=== PATIENT | female | born 1960 | race Caucasian/White ===

== ENCOUNTER → 2020-07-04 | Outpatient (CLI) | payer SELFPAY ==
[2020-07-04 23:19] LABS: HCT 37.5 % (37.2-46.3); HGB 12.2 g/dL (12.0-15.0); MCH 33.5 pg (27.0-32.0); MCHC 32.5 g/dL (32.0-37.0); Mean Platelet Volume 11.3 fL (9.5-12.2); Platelet Count 166 X 10*3/uL (140-440); RBC 3.64 X 10*6/uL (4.10-5.20); RDW 14.2 % (11.5-14.5)
[2020-07-05 02:38] LABS: Chol/HDL Ratio 1.92; LDL Cholesterol,Calculated 85.6 mg/dL (0.0-131.0); VLDL Calculation 17.4 mg/dL (5.00-40.00)
[2020-07-05 04:32] LABS: Hepatitis A Antibody IgM Non-Reactive (Non-Reactive); Hepatitis B Core IgM Non-Reactive (Non-Reactive); Hepatitis B Surface Antigen Non-Reactive (Non-Reactive); Hepatitis C IgG Antibody Reactive (Non-Reactive)
== END | disposition home or self-care (01) ==
LOC: LABWHC1 14:35
PROVIDERS: ATTEND Internal Medicine
DX: K64.2 Third degree hemorrhoids (principal); B18.2 Chronic viral hepatitis C; E66.9 Obesity, unspecified
CPT/HCPCS: 36415; 80061; 80074; 84443; 85027; 87522

== ENCOUNTER → 2020-08-04 | Outpatient (CLI) | payer MEDICAID, BC | END | disposition home or self-care (01) | LOC: LABPAT 14:14 | PROVIDERS: ATTEND Surgery | DX: Z01.812 Encounter for preprocedural laboratory examination (principal); Z20.822 Contact with and (suspected) exposure to COVID-19 | CPT/HCPCS: U0003; U0005 ==

== ENCOUNTER → 2020-08-11 | Day surgery (SDC) | payer MEDICAID, BC ==
[2020-08-07 12:52] VITALS: BMI 37.8
[~2020-08-11] MED LIST: BUPIVACAINE (PF) 0.25% 30 ML VIAL SQ ONE; HYDROmorphone 0.5 MG/0.5 ML SYRINGE IVP ONE; KETOROLAC 15 MG/ML 1 ML VIAL IVP ONE; LACTATED RINGERS 1,000 ML IV SCH; LIDOCAINE 1%-EPI 1:100,000 20 ML VIAL SQ ONE; Pre Op ABX Message 1 EACH MISC MISCELLANE ONE
--- NOTE | 2020-08-11 14:10 | P.OP ---
Date of Procedure: 08/11/20 Preoperative Diagnosis: Colon cancer screening, rectal prolapse Postoperative Diagnosis: Colon cancer screening, rectal prolapse with mucosal ulceration, diverticulosis Procedure(s) Performed: Colonoscopy, rectal exam under anesthesia was stapled hemorrhoidopexy Anesthesia: ROOSEVELT Surgeon: Alaina Mccollum Estimated Blood Loss (ml): 10 Pathology: other Condition: stable Disposition: PACU Indications for Procedure: Patient presented for rectal prolapse. She also had not had a colonoscopy and some years. Description of Procedure: Patient's taken to the operative suite where she was placed in a left lateral decubitus position. A colonoscope was passed per rectum to the cecum. There was a good prep. There is diverticulosis noted in the sigmoid colon. There is a superficial mucosal ulceration in the rectum consistent with prior prolapse. The colon is otherwise without evidence of polyp, mass lesion, stricture or other mucosal abnormality. She's then placed onto the operative table in stirrups. She is prepped and draped in the usual sterile manner. Digital rectal exam is carried out. Anoscope was inserted and all areas were examined. This is consistent with some significant rectal mucosal prolapse. A pursestring suture of 2-0 Prolene was then placed about 4-5 cm proximal to the dentate line. The stapler was inserted and the pursestring was tied down. The limbs of the suture were brought through the appropriate openings. The stapler was closed until the indicator was in the mid green portion. A vaginal exam was carried out and there was no evidence of incorporated vaginal mucosa. It was held 1 minute, fired and held 1 minute. During this the patient began to become light with the anesthetic. When the stapler was removed there was an incomplete donut. Therefore the procedure was repeated. At that point there was a good complete donuts however there is still some redundant tissue anteriorly. One additional firing was performed and there was good reduction of the prolapse. No significant bleeding was noted. Perianal block was carried out she was taken recovery room in satisfactory condition. According to or personnel, ARE correct. Plan - Discharge Summary Discharge Rx Participant: Yes New Discharge Prescriptions: New HYDROcodone/APAP 5-325MG [[place] 5-325] 1 - 2 tab PO Q4H PRN #20 tab PRN Reason: Pain No Action Ibuprofen 200 - 400 mg PO Q6H PRN PRN Reason: Pain Omeprazole [PriLOSEC] 20 mg PO DAILY PRN PRN Reason: Heartburn Discharge Medication List Ibuprofen 200 - 400 mg PO Q6H PRN 08/07/20 [History] Omeprazole [PriLOSEC] 20 mg PO DAILY PRN 08/07/20 [History] HYDROcodone/APAP 5-325MG [[place] 5-325] 1 - 2 tab PO Q4H PRN #20 tab 08/11/20 [Rx] Follow up Appointment(s)/Referral(s): Alaina Mccollum DO [Doctor of Osteopathic Medicine] - 2 Weeks Activity/Diet/Wound Care/Special Instructions: Take pain medication as needed. You could also take Tylenol or Motrin. [place] warm tub of water 2 or 3 times a day as needed for discomfort. Expect a little bit of bleeding. Begin taking a fiber supplement and/or stool softener daily. The goal is 1-2 soft bowel movements a day. Due to the bowel prep, bowel movement would not be expected until Tuesday. Call if questions or concerns Discharge Disposition: HOME SELF-CARE
[2020-08-11 14:23] VITALS: TEMP 97.5
[2020-08-11 14:33] VITALS: RESP 16
[2020-08-11 15:28] VITALS: BP 151/90; PULSE 65
== END | disposition home or self-care (01) ==
LOC: ORWHC2ENDO 11:07
PROVIDERS: ATTEND Surgery
DX: K62.3 Rectal prolapse (principal); K62.89 Other specified diseases of anus and rectum; K64.5 Perianal venous thrombosis; K57.30 Diverticulosis of large intestine without perforation or abscess without bleeding; K62.6 Ulcer of anus and rectum; K64.8 Other hemorrhoids; M19.90 Unspecified osteoarthritis, unspecified site; F32.9 Major depressive disorder, single episode, unspecified; G43.909 Migraine, unspecified, not intractable, without status migrainosus; K08.89 Other specified disorders of teeth and supporting structures; F17.210 Nicotine dependence, cigarettes, uncomplicated; Z98.890 Other specified postprocedural states; Z80.0 Family history of malignant neoplasm of digestive organs; Z79.1 Long term (current) use of non-steroidal anti-inflammatories (NSAID); Z79.899 Other long term (current) drug therapy; Z86.19 Personal history of other infectious and parasitic diseases; Z96.659 Presence of unspecified artificial knee joint; Z96.653 Presence of artificial knee joint, bilateral; Z90.89 Acquired absence of other organs; Z98.1 Arthrodesis status
CPT/HCPCS: 88305; 45378; 46947; J1885; J1170

== ENCOUNTER → 2020-09-26 | Outpatient (CLI) | payer MEDICAID, BC ==
--- NOTE | 2020-09-26 09:05 | US ---
EXAMINATION TYPE: US abdomen complete DATE OF EXAM: 09/26/2020 COMPARISON: NONE CLINICAL HISTORY: Chronic viral hepatitis C B18.2. hepatitis EXAM MEASUREMENTS: Liver Length: 15.0 cm Gallbladder Wall: 0.3 cm CBD: 0.3 cm Spleen: 12.3 cm Right Kidney: 9.9 x 3.6 x 4.7 cm Left Kidney: 11.5 x 5.1 x 5.2 cm Technical limitations due to large amount of overlying bowel content Pancreas: Obscured by overlying bowel gas Liver: appears wnl Gallbladder: no evidence of stones Evidence for sonographic Seth's sign: no CBD: appears wnl Spleen: wnl Right Kidney: no evidence of hydronephrosis Left Kidney: no evidence of hydronephrosis Upper IVC: wnl Abd Aorta: Atherosclerotic aorta. No evidence of abdominal aortic aneurysm visualized portions. IMPRESSION: 1. The study is limited by overlying bowel gas. The pancreas is obscured by overlying bowel gas. 2. Atherosclerotic aorta. No evidence of visualized aneurysm.
== END | disposition home or self-care (01) ==
LOC: RADUSWWP 06:56
PROVIDERS: ATTEND Internal Medicine
DX: I70.0 Atherosclerosis of aorta (principal); B18.2 Chronic viral hepatitis C
CPT/HCPCS: 76700

== ENCOUNTER → 2021-01-26 | Outpatient (CLI) | payer MEDICAID, BC, OTHER | END | disposition home or self-care (01) | LOC: LABWHC1 09:24 | PROVIDERS: ATTEND Emergency Medicine | DX: Z03.818 Encounter for observation for suspected exposure to other biological agents ruled out (principal); Z20.822 Contact with and (suspected) exposure to COVID-19 | CPT/HCPCS: 87635 ==

== ENCOUNTER → 2021-01-27 | Outpatient (CLI) | payer MEDICAID, BC, OTHER | END | disposition home or self-care (01) | LOC: LABT 11:46 | PROVIDERS: ATTEND Emergency Medicine | DX: Z20.822 Contact with and (suspected) exposure to COVID-19 (principal) | CPT/HCPCS: 87635 ==

== ENCOUNTER 2022-04-06 12:29 | Day surgery (SDC) | payer BC, MEDICAID, OTHER ==
[2022-03-31 10:27] VITALS: BMI 41.5
[~2022-04-06 12:29] MED LIST changes: -BUPIVACAINE (PF) 0.25% 30 ML VIAL SQ ONE; -HYDROmorphone 0.5 MG/0.5 ML SYRINGE IVP ONE; -KETOROLAC 15 MG/ML 1 ML VIAL IVP ONE; -LIDOCAINE 1%-EPI 1:100,000 20 ML VIAL SQ ONE; -Pre Op ABX Message 1 EACH MISC MISCELLANE ONE
[2022-04-06] MEDS ORDERED: LACTATED RINGERS 1,000 ML IV ONE ×2 (13:01)
[2022-04-06] MEDS ORDERED: PROPOFOL 10 MG/ML 20 ML VIAL IV ONE (13:02)
[2022-04-06 13:03] VITALS: TEMP 98.6
--- NOTE | 2022-04-06 13:03 | P.GSHP ---
History of Present Illness H&P Date: 04/06/22 The patient had been seen in the office for rectal bleeding which she thought was hemorrhoidal. No hemorrhoids were seen on anoscopy but the rectal mucosa appeared inflamed. A mucosal biopsy showed proctitis and she was started on a rectal steroid with no improvement so colonoscopy with further biopsies was recommended - Review of Systems All systems: negative Past Medical History Past Medical History: GERD/Reflux Additional Past Medical History / Comment(s): ULCLERATIVE COLOITIS History of Any Multi-Drug Resistant Organisms: MRSA Date of last positivie culture/infection: 2008 MDRO Source:: RT KNEE Past Surgical History: Section, Joint Replacement, Tonsillectomy, Tubal Ligation Additional Past Surgical History / Comment(s): BILAT TKA. COLONOSCOPY. NECK SX. CYST REMOVED FROM SINUSES. HEMORRHOIDECTOMY. D & C Past Anesthesia/Blood Transfusion Reactions: No Reported Reaction Smoking Status: Current every day smoker - Past Family History Mother Family Medical History: No Reported History Medications and Allergies Home Medications Medication Instructions Recorded Confirmed Type Ibuprofen 200 - 400 mg PO Q6H PRN 08/07/20 03/31/22 History Omeprazole [PriLOSEC] 20 mg PO DAILY PRN 08/07/20 03/31/22 History sulfADIAZINE [Sulfadiazine] 500 mg PO BID 03/31/22 03/31/22 History Allergies Allergy/AdvReac Type Severity Reaction Status Date / Time No Known Allergies Allergy Verified 04/06/22 12:52 Surgical - Exam Osteopathic Statement: *. No significant issues noted on an osteopathic structural exam other than those noted in the History and Physical/Consult. - General well developed, well nourished, no distress - Eyes normal ocular movement - Neck trachea midline - Respiratory normal expansion, clear to auscultation - Cardiovascular Rhythm: regular - Abdomen Abdomen: soft, non tender, bowel sounds Assessment and Plan (1) Colon cancer screening Current Visit: Yes Status: Acute Code(s): Z12.11 - ENCOUNTER FOR SCREENING FOR MALIGNANT NEOPLASM OF COLON SNOMED Code(s): 240822797 (2) Diarrhea Current Visit: Yes Status: Acute Code(s): R19.7 - DIARRHEA, UNSPECIFIED SNOMED Code(s): 88158587 (3) History of proctitis Current Visit: Yes Status: Acute Code(s): Z87.19 - PERSONAL HISTORY OF OTHER DISEASES OF THE DIGESTIVE SYSTEM SNOMED Code(s): 281400137 Plan: Colonoscopy. The procedure, risks and complications were discussed. Questions were encouraged and answered.
[2022-04-06 13:54] VITALS: BP 128/78; PULSE 82; RESP 16
--- NOTE | 2022-04-16 16:49 | P.PCN ---
Date of Procedure: 04/06/22 Preoperative Diagnosis: Diarrhea, history proctitis, colon cancer screening Postoperative Diagnosis: Same, mild proctitis Procedure(s) Performed: Colonoscopy with biopsy Anesthesia: MAC Surgeon: Alaina Mccollum Pathology: other Condition: stable Disposition: PACU Description of Procedure: The patient was treated for proctitis with no improvement of symptons. She is taken to the endoscopy suite where a colonoscope is passed per rectum to the cecum. The prep was good. Scattered diverticuli were seen. In the distal rectum there was some mucosal erythema. No mass lesion, ulcer, mass or other abnormality was seen. The ileum was not able to be cannulated, even with reposititioning. Random biopsies were obtained along with biopsies of the distal sigmoid and rectum. We will call with further recommendations Plan - Discharge Summary Discharge Rx Participant: Yes New Discharge Prescriptions: No Action Ibuprofen 200 - 400 mg PO Q6H PRN PRN Reason: Pain Omeprazole [PriLOSEC] 20 mg PO DAILY PRN PRN Reason: Heartburn sulfADIAZINE [Sulfadiazine] 500 mg PO BID Discharge Medication List Ibuprofen 200 - 400 mg PO Q6H PRN 08/07/20 [History] Omeprazole [PriLOSEC] 20 mg PO DAILY PRN 08/07/20 [History] sulfADIAZINE [Sulfadiazine] 500 mg PO BID 03/31/22 [History] Patient Instructions/Handouts: *Sur[facility] - (Anesthesia) Endoscopy Discharge Instructions Discharge Disposition: HOME SELF-CARE
== END 2022-04-06 14:02 | disposition home or self-care (01) ==
LOC: ORWHC2ENDO 12:29
PROVIDERS: ATTEND Surgery
DX: Z12.11 Encounter for screening for malignant neoplasm of colon (principal); K62.5 Hemorrhage of anus and rectum; F17.200 Nicotine dependence, unspecified, uncomplicated; K21.9 Gastro-esophageal reflux disease without esophagitis; Z96.653 Presence of artificial knee joint, bilateral
CPT/HCPCS: 88305; 45380; J2704

== ENCOUNTER → 2022-10-12 | Outpatient (CLI) | payer MEDICAID ==
[2022-10-12 22:14] LABS: C Reactive Protein <0.30 mg/dL
[2022-10-12 23:32] LABS: ALT 43 U/L; AST 39 U/L; Albumin 3.9 d/dL; Albumin/Globulin Ratio 1.62 Ratio; Alkaline Phosphatase 71 U/L; Blood Urea Nitrogen 12.9 mg/dL; Calcium 8.8 mg/dL; Carbon Dioxide 22.5 mmol/L; Chloride 104 mmol/L; Globulin 2.4 d/dL; Glucose 103 mg/dL; Potassium 3.3 mmol/L; Sodium 142 mmol/L; Total Bilirubin 0.5 mg/dL; Total Protein 6.3 d/dL
[2022-10-13 01:32] LABS: Basophils # (A) 0.04 X 10*3/uL; Eosinophils # (A) 0.13 X 10*3/uL; Eosinophils % (A) 3.2 %; HCT 42.6 %; HGB 13.8 d/dL; Lymphocytes # (A) 1.21 X 10*3/uL; MCH 33.3 pg; MCHC 32.4 d/dL; MCV 102.9 FL; Mean Platelet Volume 11.8 FL; Monocytes # (A) 0.31 X 10*3/uL; Monocytes % (A) 7.7 %; NRBC Per 100 WBC 0 X 10*3/uL; Neutrophils # (A) 2.34 X 10*3/uL; Neutrophils % (A) 57.9 %; Platelet Count 151 X 10*3/uL; RBC 4.14 X 10*6/uL; RDW 13.7 %; WBC 4.04 X 10*3/uL
[2022-10-13 04:08] LABS: Erythrocyte Sedimentation Rate 11 mm/Hr
== END | disposition home or self-care (01) ==
LOC: LABWHC1 13:24
PROVIDERS: ATTEND Nurse Practitioner Family
DX: K51.20 Ulcerative (chronic) proctitis without complications (principal)
CPT/HCPCS: 36415; 80053; 83993; 85025; 85652; 86140

== ENCOUNTER 2022-11-05 11:49 | Day surgery (SDC) | payer MEDICAID ==
[2022-11-03 13:21] VITALS: BMI 38.0
[2022-11-05] MEDS ORDERED: LACTATED RINGERS 1,000 ML IV SCH (12:22)
[2022-11-05 12:43] VITALS: RESP 16; TEMP 97
[2022-11-05] MEDS ORDERED: LIDOCAINE 2% INJ 20 MG/ML (2 ML VIAL) ONE (13:18)
[2022-11-05] MEDS ORDERED: PROPOFOL 10 MG/ML 20 ML VIAL IV ONE (13:18)
--- NOTE | 2022-11-05 13:30 | P.PCN ---
Date of Procedure: 11/05/22 Procedure(s) Performed: BRIEF HISTORY: Patient is a 62-year-old, pleasant, white female scheduled for an upper endoscopy as a part of surveillance of long-standing history of GERD and Ledezma's esophagus. Her last EGD was several years ago. She is currently on omeprazole 20 mg daily.. PROCEDURE PERFORMED: Esophagogastroduodenoscopy with biopsy. PREOPERATIVE DIAGNOSIS: GERD/Ledezma's esophagus. IV sedation per anesthesia. PROCEDURE: After informed consent was obtained, the patient was brought into the endoscopy unit. IV sedation was administered by Anesthesia under continuous monitoring. Initially the Olympus GIF-140 video endoscope was inserted into the mouth. Esophagus intubated without any difficulty. It was gradually advanced into the stomach and duodenum and carefully examined. The bulb and the second part of the duodenum appeared normal. The scope at this time was withdrawn to the stomach, adequately insufflated with air, and upon careful examination, mucosa of the antrum, had mild gastritis and biopsies were done from this area. Mucosa of the body, cardia and the fundus appeared normal. The scope was then withdrawn into the esophagus. The GE junction was located at 34 cm from the incisors. There was a 5 mm tongue of Ledezma's appearing mucosa just proximal to the GE junction which was biopsied. The rest of the esophagus appeared normal. There were no erosions or ulcerations seen and the patient tolerated the procedure well. IMPRESSION: 1. 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 2. Mild antral gastritis. RECOMMENDATIONS: The findings of this examination were discussed with the patient lesser family. She was advised to follow with the biopsy results. Continue with omeprazole 20 mg daily and follow antireflux measures. If the biopsy confirms the presence of Ledezma's esophagus he can have a repeat upper endoscopy 3 years.
[2022-11-05 14:00] VITALS: BP 128/82; PULSE 76
== END 2022-11-05 14:31 | disposition home or self-care (01) ==
LOC: ORWHC2ENDO 11:49
PROVIDERS: ATTEND Internal Medicine Gastroenterology
DX: K29.50 Unspecified chronic gastritis without bleeding (principal); K22.70 Barrett's esophagus without dysplasia; K22.89 Other specified disease of esophagus; K21.9 Gastro-esophageal reflux disease without esophagitis; K51.90 Ulcerative colitis, unspecified, without complications; I25.10 Atherosclerotic heart disease of native coronary artery without angina pectoris; F17.200 Nicotine dependence, unspecified, uncomplicated; M19.90 Unspecified osteoarthritis, unspecified site; Z79.1 Long term (current) use of non-steroidal anti-inflammatories (NSAID); Z79.899 Other long term (current) drug therapy
CPT/HCPCS: 43239; J2704; J2001; 88305

== ENCOUNTER 2022-12-18 12:17 | Emergency (ER) | payer MEDICAID ==
[2022-12-18 12:21] VITALS: RESP 20; TEMP 98
[2022-12-18] MEDS ORDERED: SODIUM CHLORIDE 0.9% 1,000 ML IV STA (12:23)
[2022-12-18] MEDS ORDERED: KETOROLAC 15 MG/ML 1 ML VIAL IVP STA (12:43)
--- NOTE | 2022-12-18 12:46 | ED ---
General Adult HPI - General Chief complaint: Upper Respiratory Infection Stated complaint: Headache, congestion Time Seen by Provider: 12/18/22 12:23 Source: patient Mode of arrival: ambulatory Limitations: no limitations, physical limitation - History of Present Illness Initial comments: 62 year old female presented to the ED with a chief complaint of URI symptoms. Patient states yesterday, started to experience rhinorrhea, congestion. Today, notes onset of headache and cough productive with yellow sputum. States that she took an at-home covert tests, which was positive. Denies shortness of breath. Denies fever. Denies chest pain. No other complaints at this time. - Related Data Home Medications Medication Instructions Recorded Confirmed Ibuprofen 200 - 400 mg PO Q6H PRN 08/07/20 11/05/22 Omeprazole [PriLOSEC] 20 mg PO DAILY PRN 08/07/20 11/05/22 sulfADIAZINE [Sulfadiazine] 500 mg PO BID 03/31/22 11/05/22 Allergies Allergy/AdvReac Type Severity Reaction Status Date / Time No Known Allergies Allergy Verified 12/18/22 12:21 Review of Systems ROS Statement: Those systems with pertinent positive or pertinent negative responses have been documented in the HPI. ROS Other: All systems not noted in ROS Statement are negative. 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 History of Any Multi-Drug Resistant Organisms: MRSA Date of last positivie culture/infection: 2008 MDRO Source:: RT KNEE Past Surgical History: Section, Joint Replacement, Tonsillectomy, Tubal Ligation Additional Past Surgical History / Comment(s): total right & left knees, colonoscopy.,. cervical surgery to replace discs with cadaver bone., cyst removed from sinuses, hemorrhoidectomy, d & c. Past Anesthesia/Blood Transfusion Reactions: No Reported Reaction Past Psychological History: No Psychological Hx Reported Smoking Status: Current every day smoker Past Alcohol Use History: Occasional Past Drug Use History: None Reported - Past Family History Mother Family Medical History: Unable to Obtain Additional Family Medical History / Comment(s): pt adopted General Exam Limitations: no limitations, physical limitation General appearance: alert, in no apparent distress Eye exam: Present: normal appearance Respiratory exam: Present: normal lung sounds bilaterally Cardiovascular Exam: Present: regular rate, normal rhythm GI/Abdominal exam: Present: soft Extremities exam: Present: normal inspection Neurological exam: Present: alert, oriented X3 Skin exam: Present: warm, dry Course Vital Signs 12/18/22 12:18 Temperature 98 F Pulse Rate 101 H Respiratory 20 Rate Blood Pressure 164/85 O2 Sat by Pulse 99 Oximetry Medical Decision Making - Medical Decision Making Was pt. sent in by a medical professional or institution (, MARIA ELENA, NEWSPAPER DISTRIBUTOR SUPERVISOR, urgent care, hospital, or group home...) When possible be specific @ -No Did you speak to anyone other than the patient for history (EMS, parent, family, police, friend...)? What history was obtained from this source @ -No Did you review nursing and triage notes (agree or disagree)? Why? @ -I reviewed and agree with nursing and triage notes Were old charts reviewed (outside hosp., previous admission, EMS record, old EKG, old radiological studies, urgent care reports/EKG's, group home records)? Report findings @ -No old charts were reviewed Differential Diagnosis (chest pain, altered mental status, abdominal pain women, abdominal pain men, vaginal bleeding, weakness, fever, dyspnea, syncope, headache, dizziness, GI bleed, back pain, seizure, CVA, palpatations, mental health, musculoskeletal)? @ -Differential Dyspnea: Coronary syndrome, arrhythmia, tamponade, asthma, COPD, pulmonary embolism, pneumonia, pneumothorax, pulmonary effusion, anaphylaxis, diabetic ketoacidosis, flailed chest, pulmonary contusion, diaphragmatic rupture, anemia, neuromuscular, this is not meant to be an all-inclusive list. EKG interpreted by me (3pts min.). @ -None X-rays interpreted by me (1pt min.). @ -X-ray show no evidence of pneumonia or other acute process. CT interpreted by me (1pt min.). @ -None done U/S interpreted by me (1pt. min.). @ -None done What testing was considered but not performed or refused? (CT, X-rays, U/S, labs)? Why? @ -None What meds were considered but not given or refused? Why? @ -None Did you discuss the management of the patient with other professionals (professionals i.e. , MARIA ELENA, NEWSPAPER DISTRIBUTOR SUPERVISOR, lab, RT, psych nurse, social sciences professor, drilling supervisor, teacher, desk officer, foster care case manager)? Give summary @ -No Was smoking cessation discussed for >3mins.? @ -No Was critical care preformed (if so, how long)? @ -No Were there social determinants of health that impacted care today? How? (Homelessness, low income, unemployed, alcoholism, drug addiction, transp ortation, low edu. Level, literacy, decrease access to med. care, [facility], rehab)? @ -No Was there de-escalation of care discussed even if they declined (Discuss DNR or withdrawal of care, Hospice)? DNR status @ -No What co-morbidities impacted this encounter? (DM, HTN, Smoking, COPD, CAD, Cancer, CVA, ARF, Chemo, Hep., AIDS, mental health diagnosis, sleep apnea, morbid obesity)? @ -None Was patient admitted / discharged? Hospital course, mention meds given and route, prescriptions, significant lab abnormalities, going to OR and other pertinent info. @ -Discharge. Influenza A/B, RSV,COVID testing negative. However, with positive home test will likely does have COVID. Is x-ray showed no evidence of pneumonia or other acute process. Discussed pros versus cons of antiviral treatment. At this time, patient deferred prescription. Advised supportive care. Discussed return precautions with patient who verbalizes agreement. Undiagnosed new problem with uncertain prognosis? @ -No Drug Therapy requiring intensive monitoring for toxicity (Heparin, Nitro, Insulin, Cardizem)? @ -No Were any procedures done? @ -No Diagnosis/symptom? @ -Viral URI Acute, or Chronic, or Acute on Chronic? @ -Acute Uncomplicated (without systemic symptoms) or Complicated (systemic symptoms)? @ -Uncomplicated Side effects of treatment? @ -No Exacerbation, Progression, or Severe Exacerbation? @ -No Poses a threat to life or bodily function? How? (Chest pain, [place], NH, pneumonia, PE, COPD, DKA, ARF, appy, cholecystitis, CVA, Diverticulitis, Homicidal, Morales icidal, threat to staff... and all critical care pts) @ -No - Lab Data Lab Results 12/18/22 Range/Units 12:23 Influenza Type A (PCR) Not Detected (Not Detectd) Influenza Type B (PCR) Not Detected (Not Detectd) RSV (PCR) Not Detected (Not Detectd) SARS-CoV-2 (PCR) Not Detected (Not Detectd) Disposition Clinical Impression: Viral URI Disposition: HOME SELF-CARE Condition: Good Instructions (If sedation given, give patient instructions): Upper Respiratory Infection (ED) Additional Instructions: Please return to the Emergency Department if symptoms worsen or any other concerns. Is patient prescribed a controlled substance at d/c from ED?: No Referrals: None,Stated [Primary Care Provider] - 1-2 days Time of Disposition: 14:08
--- NOTE | 2022-12-18 13:32 | XR ---
EXAMINATION TYPE: XR chest 2V DATE OF EXAM: 12/18/2022 COMPARISON: NONE HISTORY: Shortness of breath TECHNIQUE: Frontal and lateral views of the chest are obtained. FINDINGS: Scattered senescent parenchymal changes noted. Hyperinflation compatible with COPD. No evidence for infiltrate. No evidence for atelectasis. Heart size is stable. Mediastinal structures are stable and grossly unremarkable. No evidence for hilar prominence. Degenerative changes dorsal spine. IMPRESSION: 1. No evidence for acute pulmonary disease.
[2022-12-18 14:29] VITALS: BP 162/107; PULSE 82
== END 2022-12-18 14:32 | disposition home or self-care (01) ==
LOC: EC 12:17
DX: J06.9 Acute upper respiratory infection, unspecified (principal); K21.9 Gastro-esophageal reflux disease without esophagitis; F17.200 Nicotine dependence, unspecified, uncomplicated; Z20.822 Contact with and (suspected) exposure to COVID-19; Z79.899 Other long term (current) drug therapy
CPT/HCPCS: 87636; 71046; 99284; 96374; 96361; J1885

== ENCOUNTER 2024-01-21 03:40 | Emergency (ER) | payer MEDICAID, OTHER ==
[2024-01-21 03:47] VITALS: TEMP 98
[2024-01-21] MEDS: HYDROcodone/APAP 5-325MG 1 EACH TAB PO STA (05:00)
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
[2024-01-21 07:02] VITALS: BP 110/70; PULSE 84; RESP 16
== END 2024-01-21 06:57 | disposition home or self-care (01) ==
LOC: EC 03:40
CPT/HCPCS: 72070; 99283

== ENCOUNTER 2024-08-21 00:06 | Emergency (ER) | payer MEDICAID, OTHER ==
--- NOTE | 2024-08-21 00:29 | ED ---
GI Bleed HPI - General Chief complaint: GI Bleed Stated complaint: GI Bleed Time Seen by Provider: 08/21/24 00:18 Source: patient, RN notes reviewed Mode of arrival: ambulatory Limitations: no limitations - History of Present Illness Initial comments: This is a 64 year old female who presents to the emergency department for rectal bleeding. Patient states that she woke up and her sheets were covered in maroon-colored blood. She went to wipe herself off and noticed this coming from her rectum. However, she has not had any rectal bleeding since. States that her abdomen feels sore but is not in any severe pain. She does have nausea. Reports a history of IBS and IBD, but has never had this happen to her before. Not taking any blood thinners. She does also report feeling weak and dizzy. - Related Data Home Medications Medication Instructions Recorded Confirmed Ibuprofen 200 - 400 mg PO Q6H PRN 08/07/20 11/05/22 Omeprazole [PriLOSEC] 20 mg PO DAILY PRN 08/07/20 11/05/22 sulfADIAZINE [Sulfadiazine] 500 mg PO BID 03/31/22 11/05/22 Previous Rx's Medication Instructions Recorded HYDROcodone/APAP 5-325MG [[place] 1 tab PO Q6HR PRN 3 Days #12 tab 01/21/24 5-325] Ciprofloxacin HCl [Cipro] 500 mg PO BID 7 Days #14 tab 08/21/24 metroNIDAZOLE [Flagyl] 500 mg PO BID 7 Days #14 tab 08/21/24 Allergies Allergy/AdvReac Type Severity Reaction Status Date / Time No Known Allergies Allergy Verified 08/21/24 00:11 Review of Systems ROS Statement: Those systems with pertinent positive or pertinent negative responses have been documented in the HPI. ROS Other: All systems not noted in ROS Statement are negative. 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 History of Any Multi-Drug Resistant Organisms: MRSA Date of last positivie culture/infection: 2008 MDRO Source:: RT KNEE Past Surgical History: Section, Joint Replacement, Tonsillectomy, Tubal Ligation Additional Past Surgical History / Comment(s): total right & left knees, colonoscopy.,. cervical surgery to replace discs with cadaver bone., cyst removed from sinuses, hemorrhoidectomy, d & c. Past Anesthesia/Blood Transfusion Reactions: No Reported Reaction Past Psychological History: No Psychological Hx Reported Smoking Status: Current every day smoker Past Alcohol Use History: Occasional Past Drug Use History: None Reported - Past Family History Mother Family Medical History: Unable to Obtain Additional Family Medical History / Comment(s): pt adopted General Exam Limitations: no limitations General appearance: alert, in no apparent distress Head exam: Present: atraumatic, normocephalic, normal inspection Respiratory exam: Present: normal lung sounds bilaterally. Absent: respiratory distress, wheezes, rales, rhonchi, stridor Cardiovascular Exam: Present: regular rate, normal rhythm, normal heart sounds. Absent: systolic murmur, diastolic murmur, rubs, gallop, clicks GI/Abdominal exam: Present: soft, normal bowel sounds. Absent: distended, tenderness, guarding, rebound, rigid Neurological exam: Present: alert, oriented X3, CN II-XII intact Psychiatric exam: Present: normal affect, normal mood Skin exam: Present: warm, dry, intact, normal color. Absent: rash Course Vital Signs 08/21/24 08/21/24 08/21/24 00:09 01:14 02:01 Temperature 98.4 F 97.7 F Pulse Rate 90 86 77 Respiratory 18 20 20 Rate Blood Pressure 136/81 150/94 133/73 O2 Sat by Pulse 96 97 94 L Oximetry 08/21/24 03:00 Temperature Pulse Rate 85 Respiratory 20 Rate Blood Pressure 132/63 O2 Sat by Pulse 95 Oximetry Medical Decision Making - Medical Decision Making This is a 64-year-old male who presents to the emergency department for rectal bleeding. Was pt. sent in by a medical professional or institution? @ -No Did you speak to anyone other than the patient for history? @ -No Did you review nursing and triage notes? @ -Yes, and I agree, it is accurate with regards to the patient's symptoms. Were old charts reviewed? @ -No Differential Diagnosis? @ -Differential GI Bleed: Esophageal varices, aortoenteric fistula, [place], gastritis, peptic ulcer disease, diverticulosis, inflammatory bowel disease, hemorrhoids, fissure, colitis, malignancy, Meckel's diverticulum, this is not meant to be an all- inclusive list. EKG interpreted by me (3pts min.)? @ -EKG interpreted by me demonstrating the following: Sinus rhythm. Ventricular rate 82 bpm, AL interval 135 ms, QRS duration 101 ms, QTc 423 ms. X-rays interpreted by me (1pt min.)? @ -Not obtained CT interpreted by me (1pt min.)? @ -CT scan of the abdomen and pelvis obtained. My interpretation identifies wall thickening around the sigmoid colon. U/S interpreted by me (1pt. min.)? @ -Not obtained What testing was considered but not performed? (CT, X-rays, U/S, labs)? Why? @ -None What meds were considered but not given? Why? @ -None Did you discuss the management of the patient with other professionals? @ -No Did you reconcile home meds? @ -No Was smoking cessation discussed for >3mins.? @ -No Was critical care preformed (if so, how long)? @ -No Were there social determinants of health that impacted care today? How? (Homelessness, low income, unemployed, alcoholism, drug addiction, transportation, low edu. Level, literacy, decrease access to med. care, group home, rehab)? @ -No Was there de-escalation of care discussed even if they declined? (Discuss DNR or withdrawal of care, Hospice)? @ -No What co-morbidities impacted this encounter? (DM, HTN, Smoking, COPD, CAD, Cancer, CVA, Hep., AIDS, mental health diagnosis, sleep apnea, morbid obesity)? @ -IBS, ulcerative colitis Was patient admitted / discharged? @ -Discharged. Lab work demonstrates mild leukopenia with a white blood cell count of 3.82. Hemoglobin within normal limits. Elevated LFTs consistent with patient's history of hepatitis. Lactic acid mildly elevated at 2.1. Lab work otherwise unremarkable. Urinalysis suggestive of infection and urine was sent for culture. CT scan of the abdomen and pelvis demonstrates wall thickening of the sigmoid colon suggestive of colitis. She has a circumferential hyperdensity in the rectum and they advised correlation for history of surgical procedure. Patient had hemorrhoidectomy a couple of years ago, which is likely the cause of this. She had no additional episodes of bleeding while in the emergency department. She was given Zofran and pantoprazole. Will treat patient for flareup of ulcerative colitis and ciprofloxacin and Flagyl were prescribed. The ciprofloxacin will also treat her UTI. Patient was comfortable with discharge home. We reviewed strict return parameters and she is advised to have close follow-up with her PCP. Patient discharged home in stable condition. Case discussed with ED attending Dr. Dennis. Return precautions reviewed in depth, the patient is instructed to return to the emergency department with any new, worsening, or concerning symptoms. Patient verbalized understanding. Undiagnosed new problem with uncertain prognosis? @ -None Drug Therapy requiring intensive monitoring for toxicity (Heparin, Nitro, Insulin, Cardizem)? @ -None Were any procedures done? @ -None Diagnosis/symptom? @ -Colitis, UTI, rectal bleeding Acute, or Chronic, or Acute on Chronic? @ -Acute Uncomplicated (without systemic symptoms) or Complicated (systemic symptoms)? @ -Uncomplicated Side effects of treatment? @ -None Exacerbation, Progression, or Severe Exacerbation] @ -Not applicable Poses a threat to life or bodily function? @ -Unlikely - Lab Data Result diagrams: 08/21/24 00:56 08/21/24 00:56 Lab Results 08/21/24 08/21/24 08/21/24 Range/Units 00:40 00:40 00:45 WBC (4.50-10.00) 10*3/uL RBC (4.10-5.20) 10*6/uL Hgb (12.0-15.0) g/dL Hct (37.2-46.3) % MCV (80.0-97.0) fL MCH (27.0-32.0) pg MCHC (32.0-37.0) g/dL Plt Count (140-440) 10*3/uL MPV (9.5-12.2) fL Immature Gran % (Auto) % Neutrophils % % Lymphocytes % % Monocytes % % Eosinophils % % Basophils % % Immature Gran # (0.00-0.04) 10*3/uL Neutrophils # (1.80-7.70) 10*3/uL Lymphocytes # (0.90-5.00) 10*3/uL Monocytes # (0.20-1.00) 10*3/uL Eosinophils # (0.04-0.35) 10*3/uL Basophils # (0.00-0.10) 10*3/uL PT (10.0-12.5) sec INR (<1.2) APTT (22.0-30.0) sec Sodium (137-145) mmol/L Potassium (3.5-5.1) mmol/L Chloride (98-107) mmol/L Carbon Dioxide (22-30) mmol/L Anion Gap mmol/L BUN (7-17) mg/dL Creatinine (0.52-1.04) mg/dL Est GFR (CKD-EPI)AfAm (>60 ml/min/1.73 sqM) Est GFR (CKD-EPI)NonAf (>60 ml/min/1.73 sqM) Glucose (74-99) mg/dL Lactic Ac Sepsis Rflx Plasma Lactic Acid Gregorio (0.7-2.0) mmol/L Calcium (8.4-10.2) mg/dL Total Bilirubin (0.2-1.3) mg/dL AST (14-36) U/L ALT (4-34) U/L Alkaline Phosphatase (38-126) U/L Total Protein (6.3-8.2) g/dL Albumin (3.5-5.0) g/dL Urine Color Light Yellow Urine Appearance Cloudy H (Clear) Urine pH 6.5 (5.0-8.0) Ur Specific [place] 1.021 (1.001-1.035) Urine Protein Negative (Negative) Urine Glucose (UA) Negative (Negative) Urine Ketones Negative (Negative) Urine Blood Small H (Negative) Urine Nitrite Negative (Negative) Urine Bilirubin Negative (Negative) Urine Urobilinogen <2.0 (<2.0) mg/dL Ur Leukocyte Esterase Large H (Negative) Urine RBC 46 H (0-5) /hpf Urine WBC >182 H (0-5) /hpf Urine WBC Clumps Few H (None) /hpf Ur Squamous Epith Cells 3 (0-4) /hpf Urine Bacteria Rare H (None) /hpf Urine Mucus Rare H (None) /hpf Blood Type A Negative Blood Type Confirm A Negative Blood Type Recheck No Previous Record Bld Type Recheck Status CABO Indicated Antibody Screen NEGATIVE Spec Expiration Date 08/24/2024 - 233908/21/24 08/21/24 08/21/24 Range/Units 00:56 00:56 00:56 WBC 3.82 L (4.50-10.00) 10*3/uL RBC 3.52 L (4.10-5.20) 10*6/uL Hgb 12.0 (12.0-15.0) g/dL Hct 35.1 L (37.2-46.3) % MCV 99.7 H (80.0-97.0) fL MCH 34.1 H (27.0-32.0) pg MCHC 34.2 (32.0-37.0) g/dL Plt Count 118 L (140-440) 10*3/uL MPV 10.2 (9.5-12.2) fL Immature Gran % (Auto) 0.3 % Neutrophils % 40.3 % Lymphocytes % 46.3 % Monocytes % 10.5 % Eosinophils % 1.3 % Basophils % 1.3 % Immature Gran # 0.01 (0.00-0.04) 10*3/uL Neutrophils # 1.54 L (1.80-7.70) 10*3/uL Lymphocytes # 1.77 (0.90-5.00) 10*3/uL Monocytes # 0.40 (0.20-1.00) 10*3/uL Eosinophils # 0.05 (0.04-0.35) 10*3/uL Basophils # 0.05 (0.00-0.10) 10*3/uL PT 11.4 (10.0-12.5) sec INR 1.0 (<1.2) APTT 23.4 (22.0-30.0) sec Sodium 143 (137-145) mmol/L Potassium 4.4 (3.5-5.1) mmol/L Chloride 110 H (98-107) mmol/L Carbon Dioxide 26 (22-30) mmol/L Anion Gap 7 mmol/L BUN 16 (7-17) mg/dL Creatinine 0.48 L (0.52-1.04) mg/dL Est GFR (CKD-EPI)AfAm >90 (>60 ml/min/1.73 sqM) Est GFR (CKD-EPI)NonAf >90 (>60 ml/min/1.73 sqM) Glucose 84 (74-99) mg/dL Lactic Ac Sepsis Rflx Plasma Lactic Acid Gregorio (0.7-2.0) mmol/L Calcium 8.3 L (8.4-10.2) mg/dL Total Bilirubin 0.9 (0.2-1.3) mg/dL AST 265 H (14-36) U/L ALT 109 H (4-34) U/L Alkaline Phosphatase 125 (38-126) U/L Total Protein 6.4 (6.3-8.2) g/dL Albumin 3.5 (3.5-5.0) g/dL Urine Color Urine Appearance (Clear) Urine pH (5.0-8.0) Ur Specific [place] (1.001-1.035) Urine Protein (Negative) Urine Glucose (UA) (Negative) Urine Ketones (Negative) Urine Blood (Negative) Urine Nitrite (Negative) Urine Bilirubin (Negative) Urine Urobilinogen (<2.0) mg/dL Ur Leukocyte Esterase (Negative) Urine RBC (0-5) /hpf Urine WBC (0-5) /hpf Urine WBC Clumps (None) /hpf Ur Squamous Epith Cells (0-4) /hpf Urine Bacteria (None) /hpf Urine Mucus (None) /hpf Blood Type Blood Type Confirm Blood Type Recheck Bld Type Recheck Status Antibody Screen Spec Expiration Date 08/21/24 08/21/24 Range/Units 00:56 01:34 WBC (4.50-10.00) 10*3/uL RBC (4.10-5.20) 10*6/uL Hgb (12.0-15.0) g/dL Hct (37.2-46.3) % MCV (80.0-97.0) fL MCH (27.0-32.0) pg MCHC (32.0-37.0) g/dL Plt Count (140-440) 10*3/uL MPV (9.5-12.2) fL Immature Gran % (Auto) % Neutrophils % % Lymphocytes % % Monocytes % % Eosinophils % % Basophils % % Immature Gran # (0.00-0.04) 10*3/uL Neutrophils # (1.80-7.70) 10*3/uL Lymphocytes # (0.90-5.00) 10*3/uL Monocytes # (0.20-1.00) 10*3/uL Eosinophils # (0.04-0.35) 10*3/uL Basophils # (0.00-0.10) 10*3/uL PT (10.0-12.5) sec INR (<1.2) APTT (22.0-30.0) sec Sodium (137-145) mmol/L Potassium (3.5-5.1) mmol/L Chloride (98-107) mmol/L Carbon Dioxide (22-30) mmol/L Anion Gap mmol/L BUN (7-17) mg/dL Creatinine (0.52-1.04) mg/dL Est GFR (CKD-EPI)AfAm (>60 ml/min/1.73 sqM) Est GFR (CKD-EPI)NonAf (>60 ml/min/1.73 sqM) Glucose (74-99) mg/dL Lactic Ac Sepsis Rflx Y Plasma Lactic Acid Gregorio 2.1 H* (0.7-2.0) mmol/L Calcium (8.4-10.2) mg/dL Total Bilirubin (0.2-1.3) mg/dL AST (14-36) U/L ALT (4-34) U/L Alkaline Phosphatase (38-126) U/L Total Protein (6.3-8.2) g/dL Albumin (3.5-5.0) g/dL Urine Color Urine Appearance (Clear) Urine pH (5.0-8.0) Ur Specific [place] (1.001-1.035) Urine Protein (Negative) Urine Glucose (UA) (Negative) Urine Ketones (Negative) Urine Blood (Negative) Urine Nitrite (Negative) Urine Bilirubin (Negative) Urine Urobilinogen (<2.0) mg/dL Ur Leukocyte Esterase (Negative) Urine RBC (0-5) /hpf Urine WBC (0-5) /hpf Urine WBC Clumps (None) /hpf Ur Squamous Epith Cells (0-4) /hpf Urine Bacteria (None) /hpf Urine Mucus (None) /hpf Blood Type Blood Type Confirm Blood Type Recheck Bld Type Recheck Status Antibody Screen Spec Expiration Date - Radiology Data Radiology results: report reviewed, image reviewed Disposition Clinical Impression: Colitis, UTI (urinary tract infection) Disposition: HOME SELF-CARE Instructions (If sedation given, give patient instructions): Urinary Tract Infection in Women (ED), Colitis (ED) Additional Instructions: Return to the emergency department with any new, worsening, or concerning symptoms. Take both antibiotics as prescribed for 7 days. Try to follow a bland diet for the next couple of days. Follow up with your primary care provider in 1-2 days. Prescriptions: Ciprofloxacin HCl [Cipro] 500 mg PO BID 7 Days #14 tab metroNIDAZOLE [Flagyl] 500 mg PO BID 7 Days #14 tab Is patient prescribed a controlled substance at d/c from ED?: No Referrals: None,Stated [Primary Care Provider] - 1-2 days Time of Disposition: 03:32
[2024-08-21 01:17] LABS: Appearance,Urine Cloudy (Clear); Bacteria,Urine Rare /hpf; Bilirubin,Urine Negative (Negative); Blood,Urine Small (Negative); Color,Urine Light Yellow; Glucose,Urine (UA) Negative (Negative); Ketones,Urine Negative (Negative); Leukocyte Esterase,Urine Large (Negative); Mucus,Urine Rare /hpf; Nitrite,Urine Negative (Negative); PH, Urine 6.5 (5.0-8.0); Protein,Urine Negative (Negative); RBC,Urine 46 /hpf (0-5); Specific Gravity,Urine 1.021 (1.001-1.035); Squamous Epithelial Cell,Urine 3 /hpf (0-4); Urobilinogen,Urine <2.0 mg/dL (<2.0); WBC,Urine >182 /hpf (0-5)
[2024-08-21 01:18] LABS: ALT 109 U/L (4-34); African American GFR (CKD) >90 (>60 ml/min/1.73 sqM); Albumin 3.5 g/dL (3.5-5.0); Anion Gap 7 mmol/L; Blood Urea Nitrogen 16 mg/dL (7-17); Calcium 8.3 mg/dL (8.4-10.2); Carbon Dioxide 26 mmol/L (22-30); Chloride 110 mmol/L (98-107); Glucose 84 mg/dL (74-99); Non-African American GFR(CKD) >90 (>60 ml/min/1.73 sqM); Sodium 143 mmol/L (137-145); Total Bilirubin 0.9 mg/dL (0.2-1.3); Total Protein 6.4 g/dL (6.3-8.2)
[2024-08-21] MEDS: ONDANSETRON 4 MG/2 ML VIAL IVP STA (01:19)
[2024-08-21 01:20] LABS: AST 265 U/L (14-36); Alkaline Phosphatase 125 U/L (38-126); Potassium 4.4 mmol/L (3.5-5.1)
[2024-08-21] MEDS: PANTOPRAZOLE 40 MG/10 ML VIAL IVP STA (01:22)
[2024-08-21 01:23] LABS: Partial Thromboplastin Time 23.4 sec (22.0-30.0); Prothrombin Time 11.4 sec (10.0-12.5)
[2024-08-21 01:26] LABS: Basophils # (A) 0.05 10*3/uL (0.00-0.10); Basophils % (A) 1.3 %; Eosinophils # (A) 0.05 10*3/uL (0.04-0.35); Eosinophils % (A) 1.3 %; HCT 35.1 % (37.2-46.3); Lymphocytes # (A) 1.77 10*3/uL (0.90-5.00); Lymphocytes % (A) 46.3 %; MCH 34.1 pg (27.0-32.0); MCHC 34.2 g/dL (32.0-37.0); MCV 99.7 fL (80.0-97.0); Mean Platelet Volume 10.2 fL (9.5-12.2); Monocytes % (A) 10.5 %; Neutrophils # (A) 1.54 10*3/uL (1.80-7.70); Neutrophils % (A) 40.3 %; Platelet Count 118 10*3/uL (140-440); RBC 3.52 10*6/uL (4.10-5.20); RDW 13.4 % (11.5-14.5); WBC 3.82 10*3/uL (4.50-10.00)
[2024-08-21] MEDS: SODIUM CHLORIDE 0.9% 500 ML 500 ML IV ONE (02:54)
--- NOTE | 2024-08-21 03:23 | CT ---
EXAM: CT Abdomen and Pelvis With Intravenous Contrast CLINICAL HISTORY: ITS.REASON CT Reason: Abdominal pain, rectal bleeding TECHNIQUE: Axial computed tomography images of the abdomen and pelvis with intravenous contrast. CTDI is 17.6 mGy and DLP is 851.8 mGy-cm. This CT exam was performed using one or more of the following dose reduction techniques: automated exposure control, adjustment of the mA and/or kV according to patient size, and/or use of iterative reconstruction technique. COMPARISON: No relevant prior studies available. FINDINGS: Lung bases: Unremarkable. No mass. No consolidation. ABDOMEN: Liver: Unremarkable. No mass. Gallbladder and bile ducts: Unremarkable. No calcified stones. No ductal dilation. Pancreas: Unremarkable. No mass. No ductal dilation. Spleen: Unremarkable. No splenomegaly. Adrenals: Unremarkable. No mass. Kidneys and ureters: Unremarkable. No solid mass. No hydronephrosis. Stomach and bowel: Wall thickening of the sigmoid colon, concerning for colitis. Circumferential hyperdensity in the rectum, correlate for history of surgical procedure. Diverticulosis, without acute diverticulitis. No small bowel obstruction. No free intraperitoneal air. PELVIS: Appendix: No findings to suggest acute appendicitis. Bladder: Unremarkable. No mass. Reproductive: Unremarkable as visualized. ABDOMEN and PELVIS: Intraperitoneal space: Unremarkable. No free air. No significant fluid collection. Bones/joints: Degenerative changes of the spine. No acute fracture. No dislocation. Soft tissues: Unremarkable. Vasculature: Atherosclerotic changes of the aorta. No abdominal aortic aneurysm. Lymph nodes: Unremarkable. No enlarged lymph nodes. IMPRESSION: 1. Wall thickening of the sigmoid colon, concerning for colitis. 2. Circumferential hyperdensity in the rectum, correlate for history of surgical procedure. 3. Diverticulosis, without acute diverticulitis. No small bowel obstruction. No free intraperitoneal air.
[2024-08-21 03:59] VITALS: BP 140/86; PULSE 83; RESP 18; TEMP 97.9
[2024-08-21] MEDS: cefTRIAXone IN SWFI 1,000 MG/10 ML SYRINGE IVP STA (04:00)
[2024-08-21] MEDS: ONDANSETRON 4 MG ODT STARTER PACK 2 TAB BTL PO STA (04:07)
== END 2024-08-21 04:16 | disposition home or self-care (01) ==
LOC: EC 00:06
DX: K58.9 Irritable bowel syndrome, unspecified (principal); K62.5 Hemorrhage of anus and rectum; N39.0 Urinary tract infection, site not specified; F17.200 Nicotine dependence, unspecified, uncomplicated
CPT/HCPCS: 99285; 96374; 96375 ×2; 96361; 36415; 93005; 86900; 86901; 80053; 83605; 85025; 85610; 85730; 86850; 81001; 87086; 74177; J2405; J0696; S0119; Q9967; J2470

== ENCOUNTER 2024-11-18 23:16 | Observation (INO) | payer MEDICAID ==
--- NOTE | 2024-11-18 23:33 | ED ---
Psych HPI - General Chief Complaint: Psychiatric Symptoms Stated Complaint: ETOH/Mental health Time Seen by Provider: 11/18/24 23:26 Source: patient, RN notes reviewed, old records reviewed Mode of arrival: ambulatory Limitations: no limitations - History of Present Illness Initial Comments: This is a 64-year-old female brought in by friend for psychiatric evaluation, petition for suicidal thoughts and suicidal ideation and severe intoxication During patient evaluation she is sleeping through significant intoxication here in the ER MD Complaint: suicidal ideation, feels depressed -: unknown Associated Psychiatric Symptoms: depression, suicidal ideation History of same: Yes Quality: constant, getting worse Improves With: none Worsens With: alcohol Context: not taking psychiatric medications, significant life stressor Associated Symptoms: denies other symptoms Treatments Prior to Arrival: placed on mental health hold If Self Harm: admits thoughts of self harm - Related Data Home Medications Medication Instructions Recorded Confirmed Ibuprofen 200 - 800 mg PO Q6H PRN 08/07/20 11/19/24 Loperamide HCl [Imodium A-D] 2 mg PO DAILY 11/19/24 11/19/24 Loperamide HCl [Imodium A-D] 2 mg PO QID PRN 11/19/24 11/19/24 Omeprazole 20 mg PO DAILY PRN 11/19/24 11/19/24 Previous Rx's Medication Instructions Recorded Folic Acid 1 mg PO DAILY 30 Days #30 tablet 11/21/24 Thiamine [Vitamin B-1] 100 mg PO DAILY 30 Days #30 tablet 11/21/24 Allergies Allergy/AdvReac Type Severity Reaction Status Date / Time No Known Allergies Allergy Verified 11/19/24 09:01 Review of Systems ROS Statement: Those systems with pertinent positive or pertinent negative responses have been documented in the HPI. ROS Other: All systems not noted in ROS Statement are negative. 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 History of Any Multi-Drug Resistant Organisms: MRSA Date of last positivie culture/infection: 2008 MDRO Source:: RT KNEE Past Surgical History: Section, Joint Replacement, Tonsillectomy, Tubal Ligation Additional Past Surgical History / Comment(s): total right & left knees, colonoscopy.,. cervical surgery to replace discs with cadaver bone., cyst removed from sinuses, hemorrhoidectomy, d & c. Past Anesthesia/Blood Transfusion Reactions: No Reported Reaction Past Psychological History: Bipolar, Depression Smoking Status: Current every day smoker Past Alcohol Use History: Occasional Past Drug Use History: None Reported - Past Family History Mother Family Medical History: Unable to Obtain Additional Family Medical History / Comment(s): pt adopted General Exam Limitations: no limitations General appearance: alert, in no apparent distress Head exam: Present: atraumatic, normocephalic, normal inspection Eye exam: Present: normal appearance, PERRL, EOMI. Absent: scleral icterus, conjunctival injection, periorbital swelling ENT exam: Present: normal exam, mucous membranes moist Neck exam: Present: normal inspection. Absent: tenderness, meningismus, lymphadenopathy Respiratory exam: Present: normal lung sounds bilaterally. Absent: respiratory distress, wheezes, rales, rhonchi, stridor Cardiovascular Exam: Present: regular rate, normal rhythm, normal heart sounds. Absent: systolic murmur, diastolic murmur, rubs, gallop, clicks GI/Abdominal exam: Present: soft, normal bowel sounds. Absent: distended, tenderness, guarding, rebound, rigid Extremities exam: Present: normal inspection, full ROM, normal capillary refill. Absent: tenderness, pedal edema, joint swelling, calf tenderness Back exam: Present: normal inspection Neurological exam: Present: alert, oriented X3, CN II-XII intact Psychiatric exam: Present: normal affect, normal mood Skin exam: Present: warm, dry, intact, normal color. Absent: rash Course Vital Signs 11/18/24 11/19/24 11/19/24 23:20 03:55 11:56 Temperature 97.8 F 98.0 F 98.9 F Pulse Rate 94 84 88 Respiratory 18 17 14 Rate Blood Pressure 115/72 123/63 162/91 O2 Sat by Pulse 98 95 96 Oximetry 11/19/24 15:43 Temperature 97.8 F Pulse Rate 94 Respiratory 18 Rate Blood Pressure 167/87 O2 Sat by Pulse 97 Oximetry - Reevaluation(s) Reevaluation #1: 11/19/24 00:23 Medical records reviewed Reevaluation #2: 11/19/24 02:43 Patient continues with severe depression here in the ER with suicidal ideation Reevaluation #3: 11/19/24 02:43 Patient informed of results and questions answered Reevaluation #4: Was pt. sent in by a medical professional or institution ([facility], [facility], urgent care, hospital, or fpc...) When possible be specific @ -no Did you speak to anyone other than the patient for history (EMS, parent, family, police, friend...)? What history was obtained from this source @ -no Did you review nursing and triage notes (agree or disagree)? Why? @ -agree Are old charts reviewed (outside hosp., previous admission, EMS record, old EKG, old radiological studies, urgent care reports/EKG's, fpc records)? Report findings @ -yes Differential Diagnosis (chest pain, altered mental status, abdominal pain women, abdominal pain men, vaginal bleeding, weakness, fever, dyspnea, syncope, headache, dizziness, GI bleed, back pain, seizure, CVA, palpatations, mental health, musculoskeletal)? @ -prior EKG interpreted by me (3pts min.). @ -no X-rays interpreted by me (1pt min.). @ -no CT interpreted by me (1pt min.). @ -no U/S interpreted by me (1pt. min.). @ -no What testing was considered but not performed or refused? (CT, X-rays, U/S, labs)? Why? @ -none What meds were considered but not given or refused? Why? @ -none Did you discuss the management of the patient with other professionals (professionals i.e. [facility], [facility], lab, RT, psych nurse, social work lecturer, associate professor of art, teacher, project control officer, mattress spring encaser)? Give summary @ -no Was smoking cessation discussed for >3mins.? @ -no Was critical care preformed (if so, how long)? @ -no Were there social determinants of health that impacted care today? How? (Homelessness, low income, unemployed, alcoholism, drug addiction, transportation, low edu. Level, literacy, decrease access to med. care, prison, rehab)? @ -none Was there de-escalation of care discussed even if they declined (Discuss DNR or withdrawal of care, Hospice)? DNR status @ -no What co-morbidities impacted this encounter? (DM, HTN, Smoking, COPD, CAD, Cancer, CVA, ARF, Chemo, Hep., AIDS, mental health diagnosis, sleep apnea, morbid obesity)? @ -none Was patient admitted / discharged? Hospital course, mention meds given and route, prescriptions, significant lab abnormalities, going to OR and other pertinent info. @ - 64 female will be admitted for psychiatric evaluation and treatment, admitted medically for acute significant alcohol intoxication Admitted Undiagnosed new problem with uncertain prognosis? @ -no Drug Therapy requiring intensive monitoring for toxicity (Heparin, Nitro, Insulin, Cardizem)? @ -no Were any procedures done? @ -no Diagnosis/symptom? @ -Severe alcohol intoxication Acute, or Chronic, or Acute on Chronic? @ -Acute Uncomplicated (without systemic symptoms) or Complicated (systemic symptoms)? @ -Complicated Side effects of treatment? @ -no Exacerbation, Progression, or Severe Exacerbation? @ -exacerbation Poses a threat to life or bodily function? How? (Chest pain, USA, AL, pneumonia, PE, COPD, DKA, ARF, appy, cholecystitis, CVA, Diverticulitis, Homicidal, Suic idal, threat to staff... and all critical care pts) @ -yes significant intoxication Reevaluation #5: Differential Mental Health Depression, anxiety, bipolar, psychosis, schizophrenia, borderline personality, situational depression, adjustment disorder, behavioral disorder, brain tumor, malingering, substance abuse, encephalopathy, medication reaction, dementia, hypothyroidism, degenerative neurologic disorder, lupus.... This is not meant to be all-inclusive list - Consultations Consultation #1: Spoke with [facility] who agrees to admit this patient Medical Decision Making - Medical Decision Making 64 female will be admitted for psychiatric evaluation and treatment, admitted m edically for acute significant alcohol intoxication - Lab Data Result diagrams: 11/21/24 05:53 11/21/24 05:53 Lab Results 11/19/24 11/19/24 11/19/24 Range/Units 00:54 00:54 00:54 WBC 4.28 L (4.50-10.00) 10*3/uL RBC 3.23 L (4.10-5.20) 10*6/uL Hgb 11.4 L (12.0-15.0) g/dL Hct 33.5 L (37.2-46.3) % MCV 103.7 H (80.0-97.0) fL MCH 35.3 H (27.0-32.0) pg MCHC 34.0 (32.0-37.0) g/dL Plt Count 124 L (140-440) 10*3/uL MPV 10.5 (9.5-12.2) fL Immature Gran % (Auto) 0.2 % Neutrophils % 39.2 % Lymphocytes % 47.7 % Monocytes % 10.5 % Eosinophils % 1.2 % Basophils % 1.2 % Immature Gran # 0.01 (0.00-0.04) 10*3/uL Neutrophils # 1.68 L (1.80-7.70) 10*3/uL Lymphocytes # 2.04 (0.90-5.00) 10*3/uL Monocytes # 0.45 (0.20-1.00) 10*3/uL Eosinophils # 0.05 (0.04-0.35) 10*3/uL Basophils # 0.05 (0.00-0.10) 10*3/uL PT 11.0 (10.0-12.5) sec INR 1.0 (<1.2) APTT 23.0 (22.0-30.0) sec Sodium 144 (137-145) mmol/L Potassium 4.3 (3.5-5.1) mmol/L Chloride 109 H (98-107) mmol/L Carbon Dioxide 25 (22-30) mmol/L Anion Gap 10 mmol/L BUN 19 H (7-17) mg/dL Creatinine 0.60 (0.52-1.04) mg/dL Est GFR (CKD-EPI)AfAm >90 (>60 ml/min/1.73 sqM) Est GFR (CKD-EPI)NonAf >90 (>60 ml/min/1.73 sqM) Glucose 119 H (74-99) mg/dL Plasma Lactic Acid Gregorio (0.7-2.0) mmol/L Calcium 8.6 (8.4-10.2) mg/dL Phosphorus 3.5 (2.5-4.5) mg/dL Magnesium 1.6 (1.6-2.3) mg/dL Total Bilirubin 0.5 (0.2-1.3) mg/dL AST 76 H (14-36) U/L ALT 54 H (4-34) U/L Alkaline Phosphatase 124 (38-126) U/L Ammonia (<30) umol/L Troponin I (0.000-0.034) ng/mL NT-Pro-B Natriuret Pep 238 pg/mL Total Protein 6.1 L (6.3-8.2) g/dL Albumin 3.4 L (3.5-5.0) g/dL Lipase 269 (23-300) U/L Serum Alcohol 261 H* mg/dL 11/19/24 11/19/24 Range/Units 00:54 00:54 WBC (4.50-10.00) 10*3/uL RBC (4.10-5.20) 10*6/uL Hgb (12.0-15.0) g/dL Hct (37.2-46.3) % MCV (80.0-97.0) fL MCH (27.0-32.0) pg MCHC (32.0-37.0) g/dL Plt Count (140-440) 10*3/uL MPV (9.5-12.2) fL Immature Gran % (Auto) % Neutrophils % % Lymphocytes % % Monocytes % % Eosinophils % % Basophils % % Immature Gran # (0.00-0.04) 10*3/uL Neutrophils # (1.80-7.70) 10*3/uL Lymphocytes # (0.90-5.00) 10*3/uL Monocytes # (0.20-1.00) 10*3/uL Eosinophils # (0.04-0.35) 10*3/uL Basophils # (0.00-0.10) 10*3/uL PT (10.0-12.5) sec INR (<1.2) APTT (22.0-30.0) sec Sodium (137-145) mmol/L Potassium (3.5-5.1) mmol/L Chloride (98-107) mmol/L Carbon Dioxide (22-30) mmol/L Anion Gap mmol/L BUN (7-17) mg/dL Creatinine (0.52-1.04) mg/dL Est GFR (CKD-EPI)AfAm (>60 ml/min/1.73 sqM) Est GFR (CKD-EPI)NonAf (>60 ml/min/1.73 sqM) Glucose (74-99) mg/dL Plasma Lactic Acid Gregorio 1.6 (0.7-2.0) mmol/L Calcium (8.4-10.2) mg/dL Phosphorus (2.5-4.5) mg/dL Magnesium (1.6-2.3) mg/dL Total Bilirubin (0.2-1.3) mg/dL AST (14-36) U/L ALT (4-34) U/L Alkaline Phosphatase (38-126) U/L Ammonia 29 (<30) umol/L Troponin I <0.012 (0.000-0.034) ng/mL NT-Pro-B Natriuret Pep pg/mL Total Protein (6.3-8.2) g/dL Albumin (3.5-5.0) g/dL Lipase (23-300) U/L Serum Alcohol mg/dL Disposition Clinical Impression: Depression, Acute anxiety, Suicidal ideation, Adjustment reaction of adult life, Alcohol intoxication Disposition: ADMITTED IP TO THIS HOSP Condition: Fair Is patient prescribed a controlled substance at d/c from ED?: No Time of Disposition: 02:30
[2024-11-19] MEDS ORDERED: LORazepam 1 MG TAB PO PRN ×2 (00:01)
[2024-11-19] MEDS ORDERED: LORazepam 1 MG/0.5 ML VIAL IV PRN ×3 (00:01)
[2024-11-19] MEDS: SODIUM CHLORIDE 0.9% 1,000 ML IV STA (01:01)
[2024-11-19] MEDS: SODIUM CHLORIDE 0.9% 500 ML 500 ML IV STA (01:02)
[2024-11-19] MEDS: ONDANSETRON 4 MG/2 ML VIAL IVP STA (01:02)
[2024-11-19 01:49] LABS: Basophils # (A) 0.05 10*3/uL (0.00-0.10); Basophils % (A) 1.2 %; Eosinophils # (A) 0.05 10*3/uL (0.04-0.35); Eosinophils % (A) 1.2 %; HCT 33.5 % (37.2-46.3); HGB 11.4 g/dL (12.0-15.0); Lymphocytes # (A) 2.04 10*3/uL (0.90-5.00); Lymphocytes % (A) 47.7 %; MCH 35.3 pg (27.0-32.0); MCHC 34.0 g/dL (32.0-37.0); MCV 103.7 fL (80.0-97.0); Monocytes # (A) 0.45 10*3/uL (0.20-1.00); Monocytes % (A) 10.5 %; Neutrophils # (A) 1.68 10*3/uL (1.80-7.70); Neutrophils % (A) 39.2 %; Platelet Count 124 10*3/uL (140-440); RBC 3.23 10*6/uL (4.10-5.20); RDW 13.8 % (11.5-14.5); WBC 4.28 10*3/uL (4.50-10.00)
[2024-11-19 02:05] LABS: INR 1.0 (<1.2); Partial Thromboplastin Time 23.0 sec (22.0-30.0); Prothrombin Time 11.0 sec (10.0-12.5)
[2024-11-19 02:11] LABS: ALT 54 U/L (4-34); AST 76 U/L (14-36); African American GFR (CKD) >90 (>60 ml/min/1.73 sqM); Albumin 3.4 g/dL (3.5-5.0); Alkaline Phosphatase 124 U/L (38-126); Anion Gap 10 mmol/L; Blood Urea Nitrogen 19 mg/dL (7-17); Calcium 8.6 mg/dL (8.4-10.2); Carbon Dioxide 25 mmol/L (22-30); Chloride 109 mmol/L (98-107); Glucose 119 mg/dL (74-99); Lactic Acid, Venous 1.6 mmol/L (0.7-2.0); Magnesium 1.6 mg/dL (1.6-2.3); Non-African American GFR(CKD) >90 (>60 ml/min/1.73 sqM); Potassium 4.3 mmol/L (3.5-5.1); Sodium 144 mmol/L (137-145); Total Protein 6.1 g/dL (6.3-8.2)
[2024-11-19 02:20] LABS: NT-Pro-B-Type Natriuretic Pept 238 pg/mL
[2024-11-19] MEDS ORDERED: NALOXONE 0.4 MG/ML 1 ML VIAL IV PRN (02:41)
[2024-11-19 02:59] LABS: Lipase 269 U/L (23-300)
[2024-11-19] MEDS: LORazepam 0.5 MG TAB PO PRN (03:48)
[2024-11-19] MEDS: ONDANSETRON 4 MG/2 ML VIAL IVP PRN (03:49)
[2024-11-19] MEDS: DEXTROSE 5%-0.45% NACL 1,000 ML IV SCH (03:51)
[2024-11-19] MEDS: MULTIVITAMINS, THERA 1 EACH TAB PO SCH (08:36)
[2024-11-19] MEDS: FOLIC ACID 1 MG TAB PO SCH (08:36)
--- NOTE | 2024-11-19 11:16 | P.HPIM ---
History of Present Illness H&P Date: 11/19/24 History of present illness; patient 64-year-old lady with past medical history significant for osteoarthritis, ulcerative colitis presented the ER for psychiatric evaluation. Patient was brought in by friends as patient was having thoughts of hurting herself. 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 Patient stated that she normally drinks occasionally but for the last few days she has been consuming a lot of alcohol. Patient was intoxicated. Patient had plans of overdosing on her medication. Patient denies any auditory or visualizations. Patient denies any chest pain.There is no complaint of shortness of breath. Patient denies any palpitation. There is no complaint of orthopnea or PND. Denies any nausea, vomiting abdominal pain. Patient denies any complaint of dizziness. There is no complaint of headache. Initial lab work done in the ER showed WBC 4.28, hemoglobin 9.4, platelet count 124, sodium 144, potassium 4.3, BUN 19, creatinine 0.60, glucose 119, AST 70s, ALT 54, alk phos 124, troponin 0.012, lipase 261, serum alcohol 261 Patient admitted to internal medicine service REVIEW OF SYSTEMS: CONSTITUTIONAL: No fever, no malaise, no fatigue. HEENT: No recent visual problems or hearing problems. Denied any sore throat. CARDIOVASCULAR: As mentioned above PULMONARY: As mentioned above GASTROINTESTINAL: No diarrhea, no nausea, no vomiting, no abdominal pain. NEUROLOGICAL: No headaches, no weakness, no numbness. HEMATOLOGICAL: Denies any bleeding or petechiae. GENITOURINARY: Denies any burning micturition, frequency, or urgency. MUSCULOSKELETAL/RHEUMATOLOGICAL: Denies any joint pain, swelling, or any muscle pain. ENDOCRINE: Denies any polyuria or polydipsia. The rest of the 14-point review of systems is negative. PHYSICAL EXAMINATION: GENERAL: The patient is alert and oriented x3, not in any acute distress. Well developed, well nourished. HEENT: Pupils are round and equally reacting to light. EOMI. No scleral icterus. No conjunctival pallor. Normocephalic, atraumatic. No pharyngeal erythema. No thyromegaly. CARDIOVASCULAR: S1 and S2 present. No murmurs, rubs, or gallops. PULMONARY: Chest is clear to auscultation, no wheezing or crackles. ABDOMEN: Soft, nontender, nondistended, normoactive bowel sounds. No palpable organomegaly. MUSCULOSKELETAL: No joint swelling or deformity. EXTREMITIES: No cyanosis, clubbing, or pedal edema. NEUROLOGICAL: Gross neurological examination did not reveal any focal deficits. SKIN: No rashes. Assessment and plan Alcohol intoxication Alcohol abuse Suicidal ideations Major depression Impending alcohol detox Acute transaminitis Monitor vital signs Monitor CBC Monitor CMP Elopement precaution Suicide precautions Ordered CIWA protocol Order symptom triggered Ativan therapy Ordered thiamine, folic acid Resume home meds Consult psychiatry Labs and medication were reviewed.. Continue same treatment. Continue with symptomatic treatment. Resume home medication. Monitor labs and vitals. DVT and GI prophylaxis. Further recommendations as per clinical course of the patient Dictation was produced using [employer] dictation software. please excuse any gram matical, word or spelling errors. 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 History of Any Multi-Drug Resistant Organisms: MRSA Date of last positivie culture/infection: 2008 MDRO Source:: RT KNEE Past Surgical History: Section, Joint Replacement, Tonsillectomy, Tubal Ligation Additional Past Surgical History / Comment(s): total right & left knees, colonoscopy.,. cervical surgery to replace discs with cadaver bone., cyst removed from sinuses, hemorrhoidectomy, d & c. Past Anesthesia/Blood Transfusion Reactions: No Reported Reaction Past Psychological History: Bipolar, Depression Smoking Status: Current every day smoker Past Alcohol Use History: Occasional Past Drug Use History: None Reported - Past Family History Mother Family Medical History: Unable to Obtain Additional Family Medical History / Comment(s): pt adopted Medications and Allergies Home Medications Medication Instructions Recorded Confirmed Type Ibuprofen 200 - 800 mg PO Q6H PRN 08/07/20 11/19/24 History Loperamide HCl [Imodium A-D] 2 mg PO DAILY 11/19/24 11/19/24 History Loperamide HCl [Imodium A-D] 2 mg PO QID PRN 11/19/24 11/19/24 History Omeprazole 20 mg PO DAILY PRN 11/19/24 11/19/24 History Allergies Allergy/AdvReac Type Severity Reaction Status Date / Time No Known Allergies Allergy Verified 11/19/24 09:01 Physical Exam Vitals: Vital Signs Temp Pulse Resp BP Pulse Ox 11/19/24 03:55 98.0 F 84 17 123/63 95 11/18/24 23:20 97.8 F 94 18 115/72 98 Intake and Output 11/18/24 11/19/24 11/19/24 22:59 06:59 14:59 Other: Weight 68.039 kg Results CBC & Chem 7: 11/19/24 00:54 11/19/24 00:54 Labs: Abnormal Lab Results - Last 24 Hours (Table) 11/19/24 11/19/24 Range/Units 00:54 00:54 WBC 4.28 L (4.50-10.00) 10*3/uL RBC 3.23 L (4.10-5.20) 10*6/uL Hgb 11.4 L (12.0-15.0) g/dL Hct 33.5 L (37.2-46.3) % MCV 103.7 H (80.0-97.0) fL MCH 35.3 H (27.0-32.0) pg Plt Count 124 L (140-440) 10*3/uL Neutrophils # 1.68 L (1.80-7.70) 10*3/uL Chloride 109 H (98-107) mmol/L BUN 19 H (7-17) mg/dL Glucose 119 H (74-99) mg/dL AST 76 H (14-36) U/L ALT 54 H (4-34) U/L Total Protein 6.1 L (6.3-8.2) g/dL Albumin 3.4 L (3.5-5.0) g/dL Serum Alcohol 261 H* mg/dL
[2024-11-19] MEDS: LORazepam 1 MG TAB PO PRN (13:46)
[2024-11-19] MEDS: PANTOPRAZOLE 40 MG/10 ML VIAL IVP SCH (14:01)
--- NOTE | 2024-11-19 14:34 | P.CN ---
Psychiatric Consult - . 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 Patient had a blood alcohol level of 261 on admission. Patient was seen today at the bedside agreeable to speak to sql report writer. She had a one-to-one sitter at her side. She claims that this past weekend she has been feeling more depressed than usual, claims that she started to drink more, claims that she has been drinking about 1/5 of vodka every 1 to 2 days. States that she was having suicidal thoughts and called her friend Hoa to bring her into the hospital. Patient did admit to having depression and history M&M possibly bipolar. Claims that she has been previously on paroxetine however has not taken it in several years. Denies any current anxiety. Admits to very minor withdrawal is no history of delirium tremens. Claims that her sleep has been poor appetite has been fair. She was minimizing her drinking and need for mental health treatment. At this time patient denies any suicidal or homical ideations, intent or plan. Patient denies any auditory, visual hallucinations and denies any paranoia or delusions. Patients admits to using alcohol as noted above, denies any other recreational drug use PAST PSYCHIATRIC HISTORY: Patient has a a history of depression, possibly bipolar, alcohol use. Patient claims that she was previously on paroxetine, Prozac and several other medications in the past however not on any currently. States that she was previously admitted psychiatrically at [facility] in 2007. Patient denies any psychiatric outpatient follow-up. Patient denies any history of suicide attempts in the past. 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 History of Any Multi-Drug Resistant Organisms: MRSA Date of last positivie culture/infection: 2008 MDRO Source:: RT KNEE Past Surgical History: Section, Joint Replacement, Tonsillectomy, Tubal Ligation Additional Past Surgical History / Comment(s): total right & left knees, colonoscopy.,. cervical surgery to replace discs with cadaver bone., cyst removed from sinuses, hemorrhoidectomy, d & c. Past Anesthesia/Blood Transfusion Reactions: No Reported Reaction Past Psychological History: Bipolar, Depression Smoking Status: Current every day smoker Past Alcohol Use History: Occasional Past Drug Use History: None Reported ALLERGIES: as per EMR. CHEMICAL DEPENDENCY HISTORY: as per HPI. FAMILY PSYCHIATRIC/SUBSTANCE USE HISTORY: Denies SOCIAL HISTORY: Patient was born and raised in [facility]. 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 Denies any current legal history. She is currently she lives alone in a duplex. 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 She has no kids. MENTAL STATUS EXAM: General Appearance: Patient appears to be short stature, wearing glasses, hospital gown, stated age is alert, pleasant, and cooperative. Patient appears to have fair hygiene and grooming wearing hospital gown with fair eye contact. Behavior: Patient is calmly lying in bed without any agitated behavior. Vague guarded, minimizing Speech: Patient's speech is fluent and nonpressured. Mood/Affect: Patient reports their mood is "depressed", affect is congruent Suicidality/Homicidality: Patient denies having any suicidal or homicidal ideation intent or plan. Perceptions: Patient denies any visual hallucinations and denies any auditory hallucinations Though content/process: There is no evidence of any delusional thought content and thought process is linear and goal-directed. Rationalizing and minimizing Memory and concentration: AOX3, grossly intact for the purposes of this session. Can spell "WORLD" backwards Judgment and insight: Poor IMPRESSIONS: Depressive disorder unspecified, rule out bipolar depression versus major depressive disorder Alcohol use disorder Suicidal ideations PLAN: -At this time patient DOES meet criteria for inpatient psychiatric admission. -Would recommend the following medication changes/additions: Will hold off on psychiatric medications until patient is admitted to the mental health unit and medically cleared. Continue with alcohol withdrawal protocol. -CIWA protocol with PRN Ativan for alcohol withdrawal. Continue to monitor vital signs. -Continue 1:1 sitter for safety -Cannot leave AMA at this time. Patient will need a petition and certification if attempting to leave AMA. -Cellar Pumper spoke with patient about substance abuse and the harmful effects on medical and mental health, patient verbally understood and agreed. -When medically stable, patient is eligible for transfer to a psych bed when available.] -Communicated plan to patient's nurse -Psychiatry will sign off at this time -Please contact with any questions. 11/19/24 14:29
[2024-11-19 15:56] LABS: RSV Not Detected (Not Detectd)
[2024-11-19] MEDS: THIAMINE 100 MG TAB PO SCH (16:18)
[2024-11-19] MEDS: LOPERAMIDE 2 MG CAP PO SCH (22:40)
[2024-11-20] MEDS: LOPERAMIDE 2 MG CAP PO PRN (04:51)
[2024-11-20] MEDS: ACETAMINOPHEN TAB 325 MG TAB PO PRN (04:51)
[2024-11-20] MEDS: LORazepam 1 MG TAB PO PRN (08:29)
[2024-11-20 08:43] LABS: ALT 140 U/L (8-44); AST 263 U/L (13-35); Albumin 3.2 g/dL (3.8-4.9); Albumin/Globulin Ratio 1.45 Ratio (1.60-3.17); Alkaline Phosphatase 125 U/L (41-126); Anion Gap 8.20 mmol/L (4.00-12.00); BUN/Creat Ratio 19.50 Ratio (12.00-20.00); Blood Urea Nitrogen 11.7 mg/dL (9.0-27.0); Calcium 7.8 mg/dL (8.7-10.3); Carbon Dioxide 24.8 mmol/L (21.6-31.8); Chloride 106 mmol/L (96-109); Globulin 2.2 g/dL (1.6-3.3); Glucose 98 mg/dL (70-110); Magnesium 1.5 mg/dL (1.5-2.4); Potassium 3.5 mmol/L (3.5-5.5); Sodium 139 mmol/L (135-145); Total Protein 5.4 g/dL (6.2-8.2)
[2024-11-20] MEDS: LOPERAMIDE 2 MG CAP PO SCH (08:58)
[2024-11-20 10:35] LABS: Basophils # (A) 0.02 X 10*3/uL (0.00-0.10); Basophils % (A) 0.7 %; Eosinophils # (A) 0.04 X 10*3/uL (0.04-0.35); Eosinophils % (A) 1.5 %; HCT 31.7 % (37.2-46.3); HGB 10.4 g/dL (12.0-15.0); Immature Grans, Automated 0.40 %; Immature Platelet Fraction 4.3 % (1.1-6.1); Lymphocytes # (A) 1.13 X 10*3/uL (0.90-5.00); Lymphocytes % (A) 41.1 %; MCH 34.3 pg (27.0-32.0); MCHC 32.8 g/dL (32.0-37.0); MCV 104.6 FL (80.0-97.0); Macrocytosis (M) 2+ (None Seen); Monocytes # (A) 0.21 X 10*3/uL (0.20-1.00); Monocytes % (A) 7.6 %; NRBC Per 100 WBC 0 X 10*3/uL (0.00-0.01); Neutrophils # (A) 1.34 X 10*3/uL (1.80-7.70); Neutrophils % (A) 48.7 %; Platelet Count 78 X 10*3/uL (140-440); RBC 3.03 X 10*6/uL (4.10-5.20); RDW 14.1 % (11.5-14.5); WBC 2.75 X 10*3/uL (4.50-10.00)
[2024-11-21 06:44] LABS: Basophils # (A) 0.01 10*3/uL (0.00-0.10); Basophils % (A) 0.5 %; Eosinophils # (A) 0.03 10*3/uL (0.04-0.35); Eosinophils % (A) 1.5 %; HCT 31.1 % (37.2-46.3); HGB 10.4 g/dL (12.0-15.0); Lymphocytes # (A) 1.01 10*3/uL (0.90-5.00); Lymphocytes % (A) 49.5 %; MCH 34.6 pg (27.0-32.0); MCHC 33.4 g/dL (32.0-37.0); MCV 103.3 fL (80.0-97.0); Monocytes # (A) 0.23 10*3/uL (0.20-1.00); Monocytes % (A) 11.3 %; Neutrophils # (A) 0.75 10*3/uL (1.80-7.70); Neutrophils % (A) 36.7 %; Platelet Count 68 10*3/uL (140-440); RBC 3.01 10*6/uL (4.10-5.20); RDW 13.5 % (11.5-14.5); WBC 2.04 10*3/uL (4.50-10.00)
[2024-11-21 06:50] LABS: ALT 115 U/L (4-34); AST 155 U/L (14-36); African American GFR (CKD) >90 (>60 ml/min/1.73 sqM); Albumin 3.0 g/dL (3.5-5.0); Albumin/Globulin Ratio 1.2; Alkaline Phosphatase 122 U/L (38-126); Anion Gap 4 mmol/L; Blood Urea Nitrogen 7 mg/dL (7-17); Calcium 8.7 mg/dL (8.4-10.2); Carbon Dioxide 26 mmol/L (22-30); Chloride 105 mmol/L (98-107); Globulin 2.6 g/dL; Glucose 97 mg/dL (74-99); Non-African American GFR(CKD) >90 (>60 ml/min/1.73 sqM); Potassium 3.5 mmol/L (3.5-5.1); Sodium 135 mmol/L (137-145); Total Protein 5.6 g/dL (6.3-8.2)
[2024-11-21 10:57] LABS: Anisocytosis (M) Present; Hypochromasia (M) Present
--- NOTE | 2024-11-21 13:30 | P.PN ---
Subjective Progress Note Date: 11/20/2411/20 64-year-old lady with past medical history significant for osteoarthritis, u lcerative colitis presented the ER for psychiatric evaluation. Patient was brought in by friends as patient was having thoughts of hurting herself. 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 Patient stated that she normally drinks occasionally but for the last few days she has been consuming a lot of alcohol. Patient was intoxicated. Patient had plans of overdosing on her medication. Patient denies any auditory or visualizations. Patient denies any chest pain.There is no complaint of shortness of breath. Patient denies any palpitation. There is no complaint of orthopnea or PND. Denies any nausea, vomiting abdominal pain. Patient denies any complaint of dizziness. There is no complaint of headache. Initial lab work done in the ER showed WBC 4.28, hemoglobin 9.4, platelet count 124, sodium 144, potassium 4.3, BUN 19, creatinine 0.60, glucose 119, AST 70s, ALT 54, alk phos 124, troponin 0.012, lipase 261, serum alcohol 261 Patient admitted to internal medicine service 11/20. Patient seen and examined. Patient denies any auditory hallucinations. Psych evaluated, recommended inpatient psych admission REVIEW OF SYSTEMS: CONSTITUTIONAL: No fever, no malaise,. CARDIOVASCULAR: No chest pain, no palpitations, no syncope. PULMONARY: No shortness of breath, no cough, GASTROINTESTINAL: No diarrhea, no nausea, no vomiting, no abdominal pain. NEUROLOGICAL: No headaches, no weakness, PHYSICAL EXAMINATION: GENERAL: The patient is alert and oriented x3, not in any acute distress. Well developed, well nourished. HEENT: Pupils are round and equally reacting to light. EOMI. No scleral icterus. No conjunctival pallor. Normocephalic, atraumatic. No pharyngeal erythema. No thyromegaly. CARDIOVASCULAR: S1 and S2 present. No murmurs, rubs, or gallops. PULMONARY: Chest is clear to auscultation, no wheezing or crackles. ABDOMEN: Soft, nontender, nondistended, normoactive bowel sounds. No palpable organomegaly. MUSCULOSKELETAL: No joint swelling or deformity. EXTREMITIES: No cyanosis, clubbing, or pedal edema. NEUROLOGICAL: Gross neurological examination did not reveal any focal deficits. SKIN: No rashes. Assessment and plan Alcohol intoxication Alcohol abuse Suicidal ideations Major depression Impending alcohol detox Acute transaminitis Monitor vital signs Monitor CBC Monitor CMP Elopement precaution Suicide precautions Continue CIWA protocol Continue symptom triggered Ativan therapy Continue thiamine, folic acid Psych following, recommend inpatient psych admission once medically stable Labs and medication were reviewed.. Continue same treatment. Continue with symptomatic treatment. Resume home medication. Monitor labs and vitals. DVT and GI prophylaxis. Further recommendations as per clinical course of the patient Dictation was produced using Duxter dictation software. please excuse any grammatical, word or spelling errors. Objective - Vital Signs Vital signs: Vital Signs Temp 98.0 F 11/21/24 07:07 Pulse 68 11/21/24 07:07 Resp 16 11/21/24 07:07 BP 160/91 11/21/24 07:07 Pulse Ox 96 11/21/24 07:07 FiO2 Intake & Output 11/20/24 11/21/24 11/21/24 18:59 06:59 18:59 Other: Voiding Method Toilet # Voids 3 3 - Labs CBC & Chem 7: 11/21/24 05:53 11/21/24 05:53 Labs: Abnormal Lab Results - Last 24 Hours (Table) 11/21/24 11/21/24 Range/Units 05:53 05:53 WBC 2.04 L (4.50-10.00) 10*3/uL RBC 3.01 L (4.10-5.20) 10*6/uL Hgb 10.4 L (12.0-15.0) g/dL Hct 31.1 L (37.2-46.3) % MCV 103.3 H (80.0-97.0) fL MCH 34.6 H (27.0-32.0) pg Plt Count 68 L (140-440) 10*3/uL Neutrophils # 0.75 L (1.80-7.70) 10*3/uL Eosinophils # 0.03 L (0.04-0.35) 10*3/uL Sodium 135 L (137-145) mmol/L Creatinine 0.42 L (0.52-1.04) mg/dL AST 155 H (14-36) U/L ALT 115 H (4-34) U/L Total Protein 5.6 L (6.3-8.2) g/dL Albumin 3.0 L (3.5-5.0) g/dL
--- NOTE | 2024-11-21 13:31 | P.DS ---
Providers Date of admission: 11/19/24 02:43 Expected date of discharge: 11/21/24 Attending physician: Kamille Cox Consults: 11/19/24 02:41 Consult Physician Routine Consulting Provider: Psychiatry - [facility] Psychiatry Consult Reason/Comments: SI Do you want consulting provider notified?: Yes Primary care physician: Stated None Hospital Course: Discharge diagnoses; Alcohol intoxication Alcohol abuse Suicidal ideations Major depression Impending alcohol detox Acute transaminitis Hospital course; 64-year-old lady with past medical history significant for osteoarthritis, ulcerative colitis presented the ER for psychiatric evaluation. Patient was brought in by friends as patient was having thoughts of hurting herself. 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 Patient stated that she normally drinks occasionally but for the last few days she has been consuming a lot of alcohol. Patient was intoxicated. Patient had plans of overdosing on her medication. Patient denies any auditory or visualizations. Patient denies any chest pain.There is no complaint of shortness of breath. Patient denies any palpitation. There is no complaint of orthopnea or PND. Denies any nausea, vomiting abdominal pain. Patient denies any complaint of dizziness. There is no complaint of headache. Initial lab work done in the ER showed WBC 4.28, hemoglobin 9.4, platelet count 124, sodium 144, potassium 4.3, BUN 19, creatinine 0.60, glucose 119, AST 70s, ALT 54, alk phos 124, troponin 0.012, lipase 261, serum alcohol 261 Patient admitted to internal medicine service 11/20. Patient seen and examined. Patient denies any auditory hallucinations. Psych evaluated, recommended inpatient psych admission 11/21. Patient seen and examined. Patient medically stable for discharge to inpatient psych. New clinical certification done prior to discharge PHYSICAL EXAMINATION: GENERAL: The patient is alert and oriented x3, not in any acute distress. Well developed, well nourished. HEENT: Pupils are round and equally reacting to light. EOMI. No scleral icterus. No conjunctival pallor. Normocephalic, atraumatic. No pharyngeal erythema. No thyromegaly. CARDIOVASCULAR: S1 and S2 present. No murmurs, rubs, or gallops. PULMONARY: Chest is clear to auscultation, no wheezing or crackles. ABDOMEN: Soft, nontender, nondistended, normoactive bowel sounds. No palpable organomegaly. MUSCULOSKELETAL: No joint swelling or deformity. EXTREMITIES: No cyanosis, clubbing, or pedal edema. NEUROLOGICAL: Gross neurological examination did not reveal any focal deficits. SKIN: No rashes. Dictation was produced using amaysim dictation software. please excuse any grammatical, word or spelling errors. Patient Condition at Discharge: Fair Plan - Discharge Summary Discharge Rx Participant: Yes New Discharge Prescriptions: New Folic Acid 1 mg PO DAILY 30 Days #30 tablet Thiamine [Vitamin B-1] 100 mg PO DAILY 30 Days #30 tablet Continue Ibuprofen 200 - 800 mg PO Q6H PRN PRN Reason: Pain Loperamide HCl [Imodium A-D] 2 mg PO QID PRN PRN Reason: Diarrhea Loperamide HCl [Imodium A-D] 2 mg PO DAILY Omeprazole 20 mg PO DAILY PRN PRN Reason: Heartburn Discharge Medication List Ibuprofen 200 - 800 mg PO Q6H PRN 08/07/20 [History] Loperamide HCl [Imodium A-D] 2 mg PO DAILY 11/19/24 [History] Loperamide HCl [Imodium A-D] 2 mg PO QID PRN 11/19/24 [History] Omeprazole 20 mg PO DAILY PRN 11/19/24 [History] Folic Acid 1 mg PO DAILY 30 Days #30 tablet 11/21/24 [Rx] Thiamine [Vitamin B-1] 100 mg PO DAILY 30 Days #30 tablet 11/21/24 [Rx] Follow up Appointment(s)/Referral(s): None,Stated [Primary Care Provider] - 1-2 days Discharge Disposition: TRANSFER TO PSYCH HOSP/UNIT
[2024-11-21 16:17] LABS: Bilirubin,Urine Negative (Negative); Blood,Urine Negative (Negative); Color,Urine Light Yellow; Glucose,Urine (UA) Negative (Negative); Ketones,Urine Negative (Negative); Leukocyte Esterase,Urine Negative (Negative); Nitrite,Urine Negative (Negative); PH, Urine 6.5 (5.0-8.0); Protein,Urine Negative (Negative); Specific Gravity,Urine 1.008 (1.001-1.035); Urobilinogen,Urine 2.0 mg/dL (<2.0)
[2024-11-21 16:28] LABS: Barbiturate Screen,Urine Not Detected (NotDetected); Benzodiazepines Screen,Urine Detected (NotDetected); Opiate Screen,Urine Not Detected (NotDetected); Oxycodone Screen, Urine Not Detected (NotDetected); Phencyclidine Screen,Urine Not Detected (NotDetected); Tricyclic Antidepressant,Urine Not Detected (NotDetected); Urn Cannabinoid Scrn Not Detected (NotDetected)
[2024-11-22 02:33] VITALS: RESP 16
[2024-11-22] MEDS: PANTOPRAZOLE 40 MG TABLET PO SCH (06:27)
[2024-11-22 07:52] VITALS: BP 129/79; PULSE 71; TEMP 98.3
--- NOTE | 2024-11-22 12:35 | P.PN ---
Subjective Progress Note Date: 11/22/2411/20 64-year-old lady with past medical history significant for osteoarthritis, u lcerative colitis presented the ER for psychiatric evaluation. Patient was brought in by friends as patient was having thoughts of hurting herself. 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 Patient stated that she normally drinks occasionally but for the last few days she has been consuming a lot of alcohol. Patient was intoxicated. Patient had plans of overdosing on her medication. Patient denies any auditory or visualizations. Patient denies any chest pain.There is no complaint of shortness of breath. Patient denies any palpitation. There is no complaint of orthopnea or PND. Denies any nausea, vomiting abdominal pain. Patient denies any complaint of dizziness. There is no complaint of headache. Initial lab work done in the ER showed WBC 4.28, hemoglobin 9.4, platelet count 124, sodium 144, potassium 4.3, BUN 19, creatinine 0.60, glucose 119, AST 70s, ALT 54, alk phos 124, troponin 0.012, lipase 261, serum alcohol 261 Patient admitted to internal medicine service 11/20. Patient seen and examined. Patient denies any auditory hallucinations. Psych evaluated, recommended inpatient psych admission 11/22. Patient seen examined, currently waiting on bed to psych facility REVIEW OF SYSTEMS: CONSTITUTIONAL: No fever, no malaise,. CARDIOVASCULAR: No chest pain, no palpitations, no syncope. PULMONARY: No shortness of breath, no cough, GASTROINTESTINAL: No diarrhea, no nausea, no vomiting, no abdominal pain. NEUROLOGICAL: No headaches, no weakness, PHYSICAL EXAMINATION: GENERAL: The patient is alert and oriented x3, not in any acute distress. Well developed, well nourished. HEENT: Pupils are round and equally reacting to light. EOMI. No scleral icterus. No conjunctival pallor. Normocephalic, atraumatic. No pharyngeal erythema. No thyromegaly. CARDIOVASCULAR: S1 and S2 present. No murmurs, rubs, or gallops. PULMONARY: Chest is clear to auscultation, no wheezing or crackles. ABDOMEN: Soft, nontender, nondistended, normoactive bowel sounds. No palpable organomegaly. MUSCULOSKELETAL: No joint swelling or deformity. EXTREMITIES: No cyanosis, clubbing, or pedal edema. NEUROLOGICAL: Gross neurological examination did not reveal any focal deficits. SKIN: No rashes. Assessment and plan Alcohol intoxication Alcohol abuse Suicidal ideations Major depression Impending alcohol detox Acute transaminitis Monitor vital signs Monitor CBC Monitor CMP Elopement precaution Suicide precautions Patient is medically stable for discharge to inpatient psych Labs and medication were reviewed.. Continue same treatment. Continue with symptomatic treatment. Resume home medication. Monitor labs and vitals. DVT and GI prophylaxis. Further recommendations as per clinical course of the patient Dictation was produced using uchoose dictation software. please excuse any grammatical, word or spelling errors. Objective - Vital Signs Vital signs: Vital Signs Temp 98.3 F 11/22/24 06:53 Pulse 71 11/22/24 06:53 Resp 16 11/22/24 06:53 BP 129/79 11/22/24 06:53 Pulse Ox 97 11/22/24 06:53 FiO2 Intake & Output 11/21/24 11/22/24 11/22/24 18:59 06:59 18:59 Other: Voiding Method Toilet # Voids 4 10 - Labs CBC & Chem 7: 11/21/24 05:53 11/21/24 05:53 Labs: Abnormal Lab Results - Last 24 Hours (Table) 11/21/24 11/21/24 Range/Units 05:53 16:01 Plt Count 68 L (140-440) 10*3/uL Neutrophils # 0.75 L (1.80-7.70) 10*3/uL Eosinophils # 0.03 L (0.04-0.35) 10*3/uL U Benzodiazepines Scrn Detected H (NotDetected)
== END 2024-11-22 12:50 ==
LOC: EC 23:16 → 6NMEDSUR 11-19 02:43 → 4SSUR 11-19 15:31
PROVIDERS: ADMIT Hospitalist; ATTEND Hospitalist
DX: F10.129 Alcohol abuse with intoxication, unspecified (principal); F32.9 Major depressive disorder, single episode, unspecified; F43.22 Adjustment disorder with anxiety; Z79.899 Other long term (current) drug therapy; F17.200 Nicotine dependence, unspecified, uncomplicated; R45.851 Suicidal ideations; M19.90 Unspecified osteoarthritis, unspecified site; K51.90 Ulcerative colitis, unspecified, without complications; Y90.8 Blood alcohol level of 240 mg/100 ml or more
CPT/HCPCS: 96361 ×4; 96376 ×2; 82075; 96374; 96375; 99285; 36415; 83880; 80053 ×3; 82140; 83605; 83690; 83735 ×2; 84100 ×2; 84484; 85025 ×3; 85610; 85730; 81003; 80306; 80320; 87636; G0378 ×5; J2405; J2470 ×2